=== PATIENT | female | born 1955 | race Caucasian/White ===

== ENCOUNTER → 2021-04-01 | Outpatient (CLI) | payer MEDICARE ==
[2021-04-01 10:03] LABS: ALBUMIN 3.6 g/dL (3.4-5.0); ANION GAP 5 mmol/L (5-15); CALCIUM 8.4 mg/dL (8.5-10.1); CHLORIDE 106 mmol/L (98-107); CHOLESTEROL, TOTAL 167 mg/dL (140-239); CREATININE 0.65 mg/dL (0.55-1.02); TRIGLYCERIDES 42 mg/dL (50-200); VLDL CHOLESTEROL 8 mg/dL (0-25)
[2021-04-01 10:13] LABS: ALKALINE PHOSPHATASE 84 U/L (45-117); BILIRUBIN,TOTAL 0.4 mg/dL (0.2-1.0); CHOL/HDL RATIO 1.8; HDL CHOL % 57 % (28-40); HDL CHOLESTEROL (DIRECT) 95 mg/dL (40-60); LDL CHOLESTEROL,CALCULATED 64 mg/dL (54-169); LDL/HDL RATIO 0.7 (0.5-3.0); TOTAL PROTEIN 7.2 g/dL (6.4-8.2)
[2021-04-01 10:18] LABS: ALANINE AMINOTRANSFERASE 21 U/L (12-78)
== END | disposition home or self-care (01) ==
LOC: LAB 09:35
PROVIDERS: ATTEND Internal Medicine
DX: Z13.220 Encounter for screening for lipoid disorders (principal); Z13.820 Encounter for screening for osteoporosis; Z13.1 Encounter for screening for diabetes mellitus; F32.9 Major depressive disorder, single episode, unspecified; N95.9 Unspecified menopausal and perimenopausal disorder
CPT/HCPCS: 36415; 80053; 80061; 84443